=== PATIENT | male | born 1940 | race Caucasian/White ===

== ENCOUNTER 2022-04-13 09:26 | Observation (INO) | payer MEDICARE, OTHER ==
--- NOTE | 2022-04-13 10:33 | ERPHSYRPT ---
- History of Present Illness Time Seen by Provider: 04/13/22 10:55 Source: patient, family Exam Limitations: no limitations Patient Subjective Stated Complaint: PT HERE FOR WEAKNESS FOR UNKNOWN HOW LONG, HE FELL YESTERDAY WHEN HE TURNED, HE DENIES ANY INJURY FORM FALL, PT IS A POOR HISTORIAN Triage Nursing Assessment: PT ALERT, ABLE TO GET UNDRESSED WITH ASSIST OF ONE, HE NOW STATES HE IS URINATING SMALL AMTS. NO BURNING WITH URINATION . JUST F INISHED ANTIBOTICS FOR CELLULITIS Physician History: Patient is 81-year-old male presents to our ED with his for evaluation of suspected TIA. states patient has been experiencing intermittent right upper and lower extremity weakness. Symptoms started approximately 3 weeks ago. Patient followed up with primary care doctor who advised CT head but patient refused. states that patient has been having difficulty reading. She states he sometimes he appears confused. Patient fell yesterday. No associated chest pain or shortness of breath. No nausea vomiting or diaphoresis. Patient denies injury from trauma. Patient's symptoms are intermittent. No specific worsening improving factors. Patient otherwise voices no other complaints or concerns at this time. Portions of this note were created with voice recognition technology. There may be grammatical, spelling, punctuation or sound alike errors Timing/Duration: day(s) (3 weeks) Severity: mild Modifying Factors: Improves With: nothing Associated Symptoms: denies symptoms Allergies/Adverse Reactions: No Known Drug Allergies Allergy (Unverified 04/13/22 09:37) Home Medications: Aspirin 81 gm Chew [Baby Aspirin 81 mg Chew] 81 mg PO DAILY 04/13/22 [History] Donepezil HCl [Aricept] 5 mg PO DAILY 04/13/22 [History] Glimepiride 1 mg PO TID 04/13/22 [History] Simvastatin 10 mg [Zocor 10MG] 10 mg PO DAILY 04/13/22 [History] Vit E/B1/B6/FA/B12/Ala/Coq10 [Folic-K Capsule] 1 each PO DAILY 04/13/22 [History] Hx Influenza Vaccination/Date Given: Yes Hx Pneumococcal Vaccination/Date Given: No Immunizations Up to Date: Yes Travel Risk - International Travel Have you traveled outside of the country in past 3 weeks: No - Coronavirus Screening Are you exhibiting any of the following symptoms?: No Close contact with a COVID-19 positive Pt in past 14-21 Days: No - Vaccine Status Have you recieved a Covid-19 vaccination: No - Review of Systems Constitutional: No Symptoms, No Fever, No Chills Eyes: No Symptoms Ears, Nose, & Throat: No Symptoms Respiratory: No Symptoms, No Cough, No Dyspnea Cardiac: No Symptoms, No Chest Pain, No Edema, No Syncope Abdominal/Gastrointestinal: No Symptoms, No Abdominal Pain, No Nausea, No Vomiting, No Diarrhea Genitourinary Symptoms: No Symptoms, No Dysuria Musculoskeletal: No Symptoms, No Back Pain, No Neck Pain Skin: No Symptoms, No Rash Neurological: No Symptoms, No Dizziness, No Focal Weakness, No Sensory Changes Psychological: No Symptoms Endocrine: No Symptoms Hematologic/Lymphatic: No Symptoms Immunological/Allergic: No Symptoms All Other Systems: Reviewed and Negative - Past Medical History Cardiac History: Coronary Artery Disease, High Cholesterol, Hypertension Male Reproductive Disorders: Prostate Problems - Past Surgical History Past Surgical History: Yes Cardiac: CABG, Cardiac Catheterization - Social History Smoking Status: Former smoker Exposure to second hand smoke: No Drug Use: none Patient Lives Alone: No - Nursing Vital Signs Nursing Vital Signs: Initial Vital Signs Pulse Rate 67 04/13/22 09:27 Respiratory Rate 22 04/13/22 09:27 Blood Pressure 201/74 04/13/22 09:27 O2 Sat by Pulse Oximetry 97 04/13/22 09:27 Pain Scale Pain Intensity 0 - Physical Exam General Appearance: no apparent distress, alert Eye Exam: PERRL/EOMI, eyes nml inspection Ears, Nose, Throat Exam: normal ENT inspection, TMs normal, pharynx normal, moist mucous membranes Neck Exam: normal inspection, non-tender, supple, full range of motion Respiratory Exam: normal breath sounds, lungs clear, airway intact, No respiratory distress Cardiovascular Exam: regular rate/rhythm, normal heart sounds, normal peripheral pulses Gastrointestinal/Abdomen Exam: soft, normal bowel sounds, No tenderness, No mass Back Exam: normal inspection, normal range of motion, No CVA tenderness, No vertebral tenderness Extremity Exam: normal inspection, normal range of motion, pelvis stable Neurologic Exam: alert, oriented x 3, cooperative, normal mood/affect, nml cerebellar function, nml station & gait, sensation nml, No motor deficits Skin Exam: normal color, warm, dry, No rash Lymphatic Exam: No adenopathy SpO2 Interpretation: normal SpO2: 97 O2 Delivery: Room Air - Course Nursing assessment & vital signs reviewed: Yes EKG Interpreted by Me: RATE (69), A-fib, NORMAL AXIS, NORMAL INTERVALS - CT Exams Head CT Interpretation: Tele-radiologist Report (Left occipital lobe lesion favoring ischemia likely subacute. Maxillary sinus mucosal thickening. Global atrophy.) Ordered Tests: Active Orders 24 hr Category Date Time Status General Labor Forklift Operator STAT Care 04/13/22 10:24 Active IV Insertion STAT Care 04/13/22 10:23 Active Pulse Oximetry (ED) STAT Care 04/13/22 10:23 Active Consult Tele-Health [Tele-Health Consult] ROUTINE Cons 04/13/22 13:15 Active HEAD WITHOUT CONTRAST [CT] Stat Exams 04/13/22 11:03 Completed CBC W DIFF Stat Lab 04/13/22 10:35 Completed CMP Stat Lab 04/13/22 10:35 Completed TROPONIN Q4H Lab 04/13/22 10:35 Completed TROPONIN Q4H Lab 04/13/22 14:30 Ordered TROPONIN Q4H Lab 04/13/22 18:30 Ordered UA W/RFX CULTURE Stat Lab 04/13/22 10:30 Completed Transfer Order Routine Transfer 04/13/22 Ordered Medication Summary Generic Name Dose Route Start Last Admin Trade Name Freq PRN Reason Stop Dose Admin Sodium Chloride 1,000 mls @ 75 mls/hr 04/13/22 13:30 04/13/22 13:27 Sodium Chloride 0.9% 1000 Ml IV 05/13/22 13:29 75 mls/hr .[id number] RENE Administration Discontinued Medications Generic Name Dose Route Start Last Admin Trade Name Freq PRN Reason Stop Dose Admin Aspirin 324 mg 04/13/22 13:17 04/13/22 13:27 Aspirin 81 Mg Tab.Chew PO 04/13/22 13:18 324 mg STAT ONE Administration Aspirin Confirm 04/13/22 13:26 Aspirin 81 Mg Tab.Chew Administered 04/13/22 13:27 Dose 324 mg .ROUTE .STK-MED ONE Lab/Rad Data: Laboratory Result Diagrams 04/13/22 10:35 04/13/22 10:35 Laboratory Results 04/13/22 04/13/22 04/13/22 Range/Units 10:41 10:35 10:35 WBC (4.0-10.5) x10^3/uL RBC (4.1-5.6) x10^6/uL Hgb (12.5-18.0) g/dL Hct (42-50) % MCV (78-100) fL MCH (26-32) pg MCHC (32-36) g/dL RDW (11.5-14.0) % Plt Count (150-450) x10^3/uL MPV (7.5-11.0) fL Gran % (36.0-66.0) % Immature Gran % (Auto) (0.00-0.4) % Nucleat RBC Rel Count (0.00-0.1) % Eos # (Auto) (0-0.5) x10^3/uL Immature Gran # (Auto) (0.00-0.03) x10^3u/L Absolute Lymphs (auto) (1.0-4.6) x10^3/uL Absolute Monos (auto) (0.0-1.3) x10^3/uL Absolute Nucleated RBC (0.00-0.01) x10^3u/L Lymphocytes % (24.0-44.0) % Monocytes % (0.0-12.0) % Eosinophils % (0.00-5.0) % Basophils % (0.0-0.4) % Absolute Granulocytes (1.4-6.9) x10^3/uL Basophils # (0-0.4) x10^3/uL Sodium 136 L (137-145) mmol/L Potassium 4.2 (3.5-5.1) mmol/L Chloride 102 (98-107) mmol/L Carbon Dioxide 27 (22-30) mmol/L Anion Gap 10.7 (5-15) MEQ/L BUN 25 H (9-20) mg/dL Creatinine 1.34 H (0.66-1.25) mg/dL Estimated GFR 54.2 ML/MIN Glucose 115 H (74-106) mg/dL Calcium 9.2 (8.4-10.2) mg/dL Total Bilirubin 1.10 (0.2-1.3) mg/dL AST 58 (17-59) U/L ALT 41 (0-50) U/L Alkaline Phosphatase 78 (38-126) U/L Troponin I 0.020 (0.000-0.034) ng/mL Serum Total Protein 7.9 (6.3-8.2) g/dL Albumin 4.6 (3.5-5.0) g/dL Urinalys Dipstick Clnc Urine Color (YELLOW) Urine Appearance (CLEAR) Urine pH (5-6) Ur Specific [place] (1.005-1.025) POC Urine Protein Conf (Negative) Urine Ketones (NEGATIVE) Urine Nitrite (NEGATIVE) Urine Bilirubin (NEGATIVE) Urine Urobilinogen (0-1) mg/dL Urine Leukocytes (NEGATIVE) Urine WBC (Auto) (0-5) /HPF Urine RBC (Auto) (0-2) /HPF U Epithel Cells (Auto) (FEW) /HPF Urine Bacteria (Auto) (NEGATIVE) /HPF Urine RBC (0-5) Baltazar/ul Ur Culture Indicated? Urine Glucose (NEGATIVE) mg/dL Influenza Type A Ag NEGATIVE (NEGATIVE) Influenza Type B Ag NEGATIVE (NEGATIVE) RSV (PCR) NEGATIVE (Negative) SARS-CoV-2 (PCR) NEGATIVE (NEGATIVE) 04/13/22 04/13/22 Range/Units 10:35 10:30 WBC 8.6 (4.0-10.5) x10^3/uL RBC 4.91 (4.1-5.6) x10^6/uL Hgb 15.1 (12.5-18.0) g/dL Hct 45.9 (42-50) % MCV 93.5 (78-100) fL MCH 30.8 (26-32) pg MCHC 32.9 (32-36) g/dL RDW 13.2 (11.5-14.0) % Plt Count 169 (150-450) x10^3/uL MPV 10.1 (7.5-11.0) fL Gran % 73.1 H (36.0-66.0) % Immature Gran % (Auto) 0.4 (0.00-0.4) % Nucleat RBC Rel Count 0.0 (0.00-0.1) % Eos # (Auto) 0.10 (0-0.5) x10^3/uL Immature Gran # (Auto) 0.03 (0.00-0.03) x10^3u/L Absolute Lymphs (auto) 1.27 (1.0-4.6) x10^3/uL Absolute Monos (auto) 0.86 (0.0-1.3) x10^3/uL Absolute Nucleated RBC 0.00 (0.00-0.01) x10^3u/L Lymphocytes % 14.8 L (24.0-44.0) % Monocytes % 10.0 (0.0-12.0) % Eosinophils % 1.2 (0.00-5.0) % Basophils % 0.5 (0.0-0.4) % Absolute Granulocytes 6.27 (1.4-6.9) x10^3/uL Basophils # 0.04 (0-0.4) x10^3/uL Sodium (137-145) mmol/L Potassium (3.5-5.1) mmol/L Chloride (98-107) mmol/L Carbon Dioxide (22-30) mmol/L Anion Gap (5-15) MEQ/L BUN (9-20) mg/dL Creatinine (0.66-1.25) mg/dL Estimated GFR ML/MIN Glucose (74-106) mg/dL Calcium (8.4-10.2) mg/dL Total Bilirubin (0.2-1.3) mg/dL AST (17-59) U/L ALT (0-50) U/L Alkaline Phosphatase (38-126) U/L Troponin I (0.000-0.034) ng/mL Serum Total Protein (6.3-8.2) g/dL Albumin (3.5-5.0) g/dL Urinalys Dipstick Clnc MAIN LAB Urine Color YELLOW (YELLOW) Urine Appearance CLEAR (CLEAR) Urine pH 7.0 (5-6) Ur Specific [place] 1.020 (1.005-1.025) POC Urine Protein Conf 30 A (Negative) Urine Ketones NEGATIVE (NEGATIVE) Urine Nitrite NEGATIVE (NEGATIVE) Urine Bilirubin NEGATIVE (NEGATIVE) Urine Urobilinogen 0.2 (0-1) mg/dL Urine Leukocytes NEGATIVE (NEGATIVE) Urine WBC (Auto) NONE (0-5) /HPF Urine RBC (Auto) NONE (0-2) /HPF U Epithel Cells (Auto) NONE (FEW) /HPF Urine Bacteria (Auto) NONE (NEGATIVE) /HPF Urine RBC TRACE-INTACT A (0-5) Baltazar/ul Ur Culture Indicated? NO Urine Glucose NEGATIVE (NEGATIVE) mg/dL Influenza Type A Ag (NEGATIVE) Influenza Type B Ag (NEGATIVE) RSV (PCR) (Negative) SARS-CoV-2 (PCR) (NEGATIVE) - Progress Progress: improved Progress Note: Due to timing of patient's symptoms patient is not a tPA candidate. 04/13/22 11:46 Work-up reveals atrial fibrillation. This may be the source of patient's strokes. We ordered 100 mg dose of Lovenox. CT scan head shows subacute strok. Telemetry neuro advised admission with MRI. Patient also received aspirin. IV fluids infusing. Case discussed with Dr. Cole who accepts admission to observation. Again patient is not a candidate for tPA. 04/13/22 13:48 Blood pressure slightly elevated at approximately 180s to 200. In light of patient's history of stroke and active A. fib we will allow permissive hypertension from the ER's perspective. Telemetry neuro consulted. Telemetry neuro states patient can stay in our critical access hospital for further care. Case discussed Dr. Cole who accepts admission to observation. Plan of care discussed with patient. He agrees to admission [facility] for further evaluation and treatment. Portions of this note were created with voice recognition technology. There may be grammatical, spelling, punctuation or sound alike errors 04/13/22 13:[address] Mariely Will see patient in: hospital (observation) Counseled pt/family regarding: lab results, diagnosis, need for follow-up, rad results - Departure Departure Disposition: Observation Clinical Impression: Stroke, Maxillary sinus disease, Atrial fibrillation Condition: Stable Critical Care Time: No
[2022-04-13 10:40] LABS: Absolute Neutrophil Ct (ANC) 6.27 x10^3/uL (1.4-6.9); Basophil (Absolute #) 0.04 x10^3/uL (0-0.4); Eosinophil % 1.2 % (0.00-5.0); Hematocrit 45.9 % (42-50); Hemoglobin 15.1 g/dL (12.5-18.0); Lymphocyte (Absolute #) 1.27 x10^3/uL (1.0-4.6); Lymphocytes % 14.8 % (24.0-44.0); Mean Cell Volume 93.5 fL (78-100); Mean Corpuscular Hemoglobin 30.8 pg (26-32); Mean Corpuscular Hgb Concent. 32.9 g/dL (32-36); Mean Platelet Volume 10.1 fL (7.5-11.0); Monocyte (Absolute #) 0.86 x10^3/uL (0.0-1.3); Neutrophil % 73.1 % (36.0-66.0); Platelet Count 169 x10^3/uL (150-450); Red Blood Count 4.91 x10^6/uL (4.1-5.6); Red Cell Distribution Width 13.2 % (11.5-14.0); White Blood Count 8.6 x10^3/uL (4.0-10.5)
[2022-04-13 10:42] LABS: Appearance CLEAR (CLEAR); Bilirubin NEGATIVE (NEGATIVE); Glucose NEGATIVE (NEGATIVE); Ketones NEGATIVE (NEGATIVE); RBC TRACE-INTACT Ery/ul (0-5)
[2022-04-13 10:43] LABS: Dipstick done @ ? MAIN LAB; Nitrite NEGATIVE (NEGATIVE); Protein,Urine Dip 30 (Negative); Urobilinogen 0.2 mg/dL (0-1)
[2022-04-13 10:54] LABS: ALBUMIN 4.6 g/dL (3.5-5.0); ANION GAP 10.7 MEQ/L (5-15); BILIRUBIN,TOTAL 1.1 mg/dL (0.2-1.3); Calcium 9.2 mg/dL (8.4-10.2); Creatinine 1 1.34 mg/dL (0.66-1.25); EST GLOMERULAR FILTRATION RATE 54.2 ML/MIN; Potassium 4.2 mmol/L (3.5-5.1); Total Protein 7.9 g/dL (6.3-8.2)
[2022-04-13 10:55] LABS: Urine Cultured Indicated? NO
[2022-04-13 11:19] LABS: INFLUENZA A NEGATIVE (NEGATIVE); INFLUENZA B NEGATIVE (NEGATIVE); RESPIRATORY SYNCTIAL VIRUS NEGATIVE (Negative); SARS-CoV-2 Xpert Express NEGATIVE (NEGATIVE)
--- NOTE | 2022-04-13 11:28 | XRAY ---
Indication: Acute mental status change. Multiple contiguous axial images obtained through the head without contrast. Graft comparison: None Age-appropriate global atrophy with mild periventricular degenerative micro-ischemia bilaterally. Left occipital lobe demonstrates focus of cortical/subcortical hypoattenuation at least 2.1 x 3.2 x 3.5 cm favoring ischemia. No acute intracranial hemorrhage, abnormal extra-axial fluid collection, or mass effect. Fourth ventricle is midline with anatomic variant for cavum septum pellucidum. Bony calvarium intact. Mild left and minimal right maxillary sinus mucosal thickening. Mastoid air cells are clear. Impression: 1. Small focus left occipital lobe ischemia. No acute hemorrhage or mass effect. 2. Atrophy and degenerative micro-ischemia within normal limits for patient's age. 2. Incidental maxillary sinus disease.
[2022-04-13] MEDS ORDERED: BABY ASPIRIN 81 MG CHEW PO ONE (13:17)
[2022-04-13] MEDS ORDERED: BABY ASPIRIN 81 MG CHEW ONE (13:26)
[2022-04-13] MEDS ORDERED: Sodium Chloride 0.9% 1000 ML 1,000 ML IV SCH (13:30)
[2022-04-13] MEDS ORDERED: MAALOX ES 30 ML UNIT DOSE PO PRN (13:49)
[2022-04-13] MEDS ORDERED: MILK OF MAGNESIA 30 ML PO PRN (13:49)
[2022-04-13] MEDS ORDERED: Senokot-S Tablet PO PRN (13:49)
[2022-04-13] MEDS ORDERED: TYLENOL 325 MG PO PRN (13:49)
[2022-04-13] MEDS ORDERED: Amaryl 2 MG PO SCH (15:00)
[2022-04-13] MEDS ORDERED: MEDICATION INTERVENTION MC SCH (15:00)
[2022-04-13] MEDS ORDERED: NON-FORMULARY ITEM (Glimepiride [Glimepiride] 1 MG Tablet) PO SCH (15:00)
[2022-04-13] MEDS: ENOXAPARIN SODIUM SQ SCH (15:23)
[2022-04-13] MEDS: Sodium Chloride 0.9% 1000 ML 1,000 ML IV SCH (15:24)
[2022-04-13] MEDS: Amaryl 2 MG PO SCH (18:09)
[2022-04-13] MEDS ORDERED: Zocor 10MG PO SCH (22:00)
[2022-04-14] MEDS: Sodium Chloride 0.9% 1000 ML 1,000 ML IV SCH (02:55)
--- NOTE | 2022-04-14 07:40 | PCM.HP ---
History of Present Illness - Chief Complaint Chief Complaint: stroke History of Present Illness: is a 81 year old male with Hx mild dementia who reports right sided weakness for several days and a fall. PCP advised CT last week but patient refused.He lives at home with his . PMHx includes DM2,HTN,HLD,CAD,Stroke,Arthritis,Prostate problems. Medications & Allergies Home Medications: Home Medication List Aspirin 81 gm Chew [Baby Aspirin 81 mg Chew] 81 mg PO DAILY 04/13/22 [History Confirmed 04/13/22] Donepezil HCl [Aricept] 5 mg PO DAILY 04/13/22 [History Confirmed 04/13/22] Glimepiride 0.5 mg PO TID 04/13/22 [History Confirmed 04/13/22] Simvastatin 10 mg [Zocor 10MG] 10 mg PO HS 04/13/22 [History Confirmed 04/13/22] Vit E/B1/B6/FA/B12/Ala/Coq10 [Folic-K Capsule] 1 each PO DAILY 04/13/22 [History Confirmed 04/13/22] terbinafine HCL [Terbinafine HCl] 250 mg PO DAILY 04/13/22 [History Confirmed 04/13/22] Enoxaparin Sodium [Enoxaparin Sodium] 100 mg SQ DAILY #7 04/14/22 [Rx] Warfarin Sodium 5 mg [Jantoven] 5 mg PO UD #30 tablet 04/14/22 [Rx] Allergies/Adverse Reactions: Allergies Allergy/AdvReac Type Severity Reaction Status Date / Time No Known Drug Allergies Allergy Verified 04/13/22 13:53 - Past Medical History Neurological History: Stroke ENT History: Cataracts Cardiac History: Coronary Artery Disease, High Cholesterol, Hypertension Respiratory History: No Pertinent History Endocrine Medical History: Diabetes Type II Musculoskelatal History: Arthritis GI Medical History: No Pertinent History History: No Pertinent History Pyscho-Social History: No Pertinent History Male Reproductive Disorders: Prostate Problems Comment: open heart bypass x 1994 - Past Surgical History Past Surgical History: Yes Neuro Surgical History: No Pertinent History Cardiac History: CABG, Cardiac Catheterization Respiratory Surgery: No Pertinent History GI Surgical History: No Pertinent History Genitourinary Surgical Hx: No Pertinent History Musculskeletal Surgical Hx: No Pertinent History Male Surgical History: No Pertinent History - Social History Smoking Status: Former smoker Exposure to second hand smoke: No Alcohol: None Drug Use: none - Physical Exam Vital Signs: Vital Signs - 24 hr Temp Pulse Resp BP Pulse Ox 04/14/22 07:19 97.8 F 70 18 143/92 94 L 04/14/22 04:00 97.4 F 69 18 170/79 95 04/13/22 23:20 97.5 F 80 17 189/94 91 L 04/13/22 19:39 97.7 F 66 16 198/92 97 04/13/22 16:00 97.7 F 64 16 195/92 98 04/13/22 14:07 97.7 F 64 16 195/92 98 04/13/22 13:53 97 04/13/22 13:49 98 04/13/22 13:40 97.7 F 64 16 195/92 96 04/13/22 13:01 79 18 209/107 98 04/13/22 12:00 68 18 187/107 98 04/13/22 10:37 97 04/13/22 09:27 67 22 201/74 97 Results - Labs Lab/Micro Results: Lab Results-Last 24 Hours 04/13/22 04/13/22 04/13/22 Range/Units 10:30 10:35 10:35 WBC 8.6 (4.0-10.5) x10^3/uL RBC 4.91 (4.1-5.6) x10^6/uL Hgb 15.1 (12.5-18.0) g/dL Hct 45.9 (42-50) % MCV 93.5 (78-100) fL MCH 30.8 (26-32) pg MCHC 32.9 (32-36) g/dL RDW 13.2 (11.5-14.0) % Plt Count 169 (150-450) x10^3/uL MPV 10.1 (7.5-11.0) fL Gran % 73.1 H (36.0-66.0) % Immature Gran % (Auto) 0.4 (0.00-0.4) % Nucleat RBC Rel Count 0.0 (0.00-0.1) % Eos # (Auto) 0.10 (0-0.5) x10^3/uL Immature Gran # (Auto) 0.03 (0.00-0.03) x10^3u/L Absolute Lymphs (auto) 1.27 (1.0-4.6) x10^3/uL Absolute Monos (auto) 0.86 (0.0-1.3) x10^3/uL Absolute Nucleated RBC 0.00 (0.00-0.01) x10^3u/L Lymphocytes % 14.8 L (24.0-44.0) % Monocytes % 10.0 (0.0-12.0) % Eosinophils % 1.2 (0.00-5.0) % Basophils % 0.5 (0.0-0.4) % Absolute Granulocytes 6.27 (1.4-6.9) x10^3/uL Basophils # 0.04 (0-0.4) x10^3/uL Sodium 136 L (137-145) mmol/L Potassium 4.2 (3.5-5.1) mmol/L Chloride 102 (98-107) mmol/L Carbon Dioxide 27 (22-30) mmol/L Anion Gap 10.7 (5-15) MEQ/L BUN 25 H (9-20) mg/dL Creatinine 1.34 H (0.66-1.25) mg/dL Estimated GFR 54.2 ML/MIN Glucose 115 H (74-106) mg/dL POC Glucometer (74 to 106) mg/dL Calcium 9.2 (8.4-10.2) mg/dL Total Bilirubin 1.10 (0.2-1.3) mg/dL AST 58 (17-59) U/L ALT 41 (0-50) U/L Alkaline Phosphatase 78 (38-126) U/L Troponin I (0.000-0.034) ng/mL Serum Total Protein 7.9 (6.3-8.2) g/dL Albumin 4.6 (3.5-5.0) g/dL Urinalys Dipstick Clnc MAIN LAB Urine Color YELLOW (YELLOW) Urine Appearance CLEAR (CLEAR) Urine pH 7.0 (5-6) Ur Specific [place] 1.020 (1.005-1.025) POC Urine Protein Conf 30 A (Negative) Urine Ketones NEGATIVE (NEGATIVE) Urine Nitrite NEGATIVE (NEGATIVE) Urine Bilirubin NEGATIVE (NEGATIVE) Urine Urobilinogen 0.2 (0-1) mg/dL Urine Leukocytes NEGATIVE (NEGATIVE) Urine WBC (Auto) NONE (0-5) /HPF Urine RBC (Auto) NONE (0-2) /HPF U Epithel Cells (Auto) NONE (FEW) /HPF Urine Bacteria (Auto) NONE (NEGATIVE) /HPF Urine RBC TRACE-INTACT A (0-5) Baltazar/ul Ur Culture Indicated? NO Urine Glucose NEGATIVE (NEGATIVE) mg/dL Influenza Type A Ag (NEGATIVE) Influenza Type B Ag (NEGATIVE) RSV (PCR) (Negative) SARS-CoV-2 (PCR) (NEGATIVE) 04/13/22 04/13/22 04/13/22 Range/Units 10:35 10:41 14:10 WBC (4.0-10.5) x10^3/uL RBC (4.1-5.6) x10^6/uL Hgb (12.5-18.0) g/dL Hct (42-50) % MCV (78-100) fL MCH (26-32) pg MCHC (32-36) g/dL RDW (11.5-14.0) % Plt Count (150-450) x10^3/uL MPV (7.5-11.0) fL Gran % (36.0-66.0) % Immature Gran % (Auto) (0.00-0.4) % Nucleat RBC Rel Count (0.00-0.1) % Eos # (Auto) (0-0.5) x10^3/uL Immature Gran # (Auto) (0.00-0.03) x10^3u/L Absolute Lymphs (auto) (1.0-4.6) x10^3/uL Absolute Monos (auto) (0.0-1.3) x10^3/uL Absolute Nucleated RBC (0.00-0.01) x10^3u/L Lymphocytes % (24.0-44.0) % Monocytes % (0.0-12.0) % Eosinophils % (0.00-5.0) % Basophils % (0.0-0.4) % Absolute Granulocytes (1.4-6.9) x10^3/uL Basophils # (0-0.4) x10^3/uL Sodium (137-145) mmol/L Potassium (3.5-5.1) mmol/L Chloride (98-107) mmol/L Carbon Dioxide (22-30) mmol/L Anion Gap (5-15) MEQ/L BUN (9-20) mg/dL Creatinine (0.66-1.25) mg/dL Estimated GFR ML/MIN Glucose (74-106) mg/dL POC Glucometer (74 to 106) mg/dL Calcium (8.4-10.2) mg/dL Total Bilirubin (0.2-1.3) mg/dL AST (17-59) U/L ALT (0-50) U/L Alkaline Phosphatase (38-126) U/L Troponin I 0.020 0.018 (0.000-0.034) ng/mL Serum Total Protein (6.3-8.2) g/dL Albumin (3.5-5.0) g/dL Urinalys Dipstick Clnc Urine Color (YELLOW) Urine Appearance (CLEAR) Urine pH (5-6) Ur Specific [place] (1.005-1.025) POC Urine Protein Conf (Negative) Urine Ketones (NEGATIVE) Urine Nitrite (NEGATIVE) Urine Bilirubin (NEGATIVE) Urine Urobilinogen (0-1) mg/dL Urine Leukocytes (NEGATIVE) Urine WBC (Auto) (0-5) /HPF Urine RBC (Auto) (0-2) /HPF U Epithel Cells (Auto) (FEW) /HPF Urine Bacteria (Auto) (NEGATIVE) /HPF Urine RBC (0-5) Baltazar/ul Ur Culture Indicated? Urine Glucose (NEGATIVE) mg/dL Influenza Type A Ag NEGATIVE (NEGATIVE) Influenza Type B Ag NEGATIVE (NEGATIVE) RSV (PCR) NEGATIVE (Negative) SARS-CoV-2 (PCR) NEGATIVE (NEGATIVE) 04/13/22 04/13/22 04/13/22 Range/Units 16:19 18:25 21:55 WBC (4.0-10.5) x10^3/uL RBC (4.1-5.6) x10^6/uL Hgb (12.5-18.0) g/dL Hct (42-50) % MCV (78-100) fL MCH (26-32) pg MCHC (32-36) g/dL RDW (11.5-14.0) % Plt Count (150-450) x10^3/uL MPV (7.5-11.0) fL Gran % (36.0-66.0) % Immature Gran % (Auto) (0.00-0.4) % Nucleat RBC Rel Count (0.00-0.1) % Eos # (Auto) (0-0.5) x10^3/uL Immature Gran # (Auto) (0.00-0.03) x10^3u/L Absolute Lymphs (auto) (1.0-4.6) x10^3/uL Absolute Monos (auto) (0.0-1.3) x10^3/uL Absolute Nucleated RBC (0.00-0.01) x10^3u/L Lymphocytes % (24.0-44.0) % Monocytes % (0.0-12.0) % Eosinophils % (0.00-5.0) % Basophils % (0.0-0.4) % Absolute Granulocytes (1.4-6.9) x10^3/uL Basophils # (0-0.4) x10^3/uL Sodium (137-145) mmol/L Potassium (3.5-5.1) mmol/L Chloride (98-107) mmol/L Carbon Dioxide (22-30) mmol/L Anion Gap (5-15) MEQ/L BUN (9-20) mg/dL Creatinine (0.66-1.25) mg/dL Estimated GFR ML/MIN Glucose (74-106) mg/dL POC Glucometer 124 H 85 (74 to 106) mg/dL Calcium (8.4-10.2) mg/dL Total Bilirubin (0.2-1.3) mg/dL AST (17-59) U/L ALT (0-50) U/L Alkaline Phosphatase (38-126) U/L Troponin I 0.024 (0.000-0.034) ng/mL Serum Total Protein (6.3-8.2) g/dL Albumin (3.5-5.0) g/dL Urinalys Dipstick Clnc Urine Color (YELLOW) Urine Appearance (CLEAR) Urine pH (5-6) Ur Specific [place] (1.005-1.025) POC Urine Protein Conf (Negative) Urine Ketones (NEGATIVE) Urine Nitrite (NEGATIVE) Urine Bilirubin (NEGATIVE) Urine Urobilinogen (0-1) mg/dL Urine Leukocytes (NEGATIVE) Urine WBC (Auto) (0-5) /HPF Urine RBC (Auto) (0-2) /HPF U Epithel Cells (Auto) (FEW) /HPF Urine Bacteria (Auto) (NEGATIVE) /HPF Urine RBC (0-5) Baltazar/ul Ur Culture Indicated? Urine Glucose (NEGATIVE) mg/dL Influenza Type A Ag (NEGATIVE) Influenza Type B Ag (NEGATIVE) RSV (PCR) (Negative) SARS-CoV-2 (PCR) (NEGATIVE) 04/14/22 Range/Units 07:11 WBC (4.0-10.5) x10^3/uL RBC (4.1-5.6) x10^6/uL Hgb (12.5-18.0) g/dL Hct (42-50) % MCV (78-100) fL MCH (26-32) pg MCHC (32-36) g/dL RDW (11.5-14.0) % Plt Count (150-450) x10^3/uL MPV (7.5-11.0) fL Gran % (36.0-66.0) % Immature Gran % (Auto) (0.00-0.4) % Nucleat RBC Rel Count (0.00-0.1) % Eos # (Auto) (0-0.5) x10^3/uL Immature Gran # (Auto) (0.00-0.03) x10^3u/L Absolute Lymphs (auto) (1.0-4.6) x10^3/uL Absolute Monos (auto) (0.0-1.3) x10^3/uL Absolute Nucleated RBC (0.00-0.01) x10^3u/L Lymphocytes % (24.0-44.0) % Monocytes % (0.0-12.0) % Eosinophils % (0.00-5.0) % Basophils % (0.0-0.4) % Absolute Granulocytes (1.4-6.9) x10^3/uL Basophils # (0-0.4) x10^3/uL Sodium (137-145) mmol/L Potassium (3.5-5.1) mmol/L Chloride (98-107) mmol/L Carbon Dioxide (22-30) mmol/L Anion Gap (5-15) MEQ/L BUN (9-20) mg/dL Creatinine (0.66-1.25) mg/dL Estimated GFR ML/MIN Glucose (74-106) mg/dL POC Glucometer 95 (74 to 106) mg/dL Calcium (8.4-10.2) mg/dL Total Bilirubin (0.2-1.3) mg/dL AST (17-59) U/L ALT (0-50) U/L Alkaline Phosphatase (38-126) U/L Troponin I (0.000-0.034) ng/mL Serum Total Protein (6.3-8.2) g/dL Albumin (3.5-5.0) g/dL Urinalys Dipstick Clnc Urine Color (YELLOW) Urine Appearance (CLEAR) Urine pH (5-6) Ur Specific [place] (1.005-1.025) POC Urine Protein Conf (Negative) Urine Ketones (NEGATIVE) Urine Nitrite (NEGATIVE) Urine Bilirubin (NEGATIVE) Urine Urobilinogen (0-1) mg/dL Urine Leukocytes (NEGATIVE) Urine WBC (Auto) (0-5) /HPF Urine RBC (Auto) (0-2) /HPF U Epithel Cells (Auto) (FEW) /HPF Urine Bacteria (Auto) (NEGATIVE) /HPF Urine RBC (0-5) Baltazar/ul Ur Culture Indicated? Urine Glucose (NEGATIVE) mg/dL Influenza Type A Ag (NEGATIVE) Influenza Type B Ag (NEGATIVE) RSV (PCR) (Negative) SARS-CoV-2 (PCR) (NEGATIVE) Accuchecks Date 04/14/22 Date 04/13/22 Time 07:15 Time 21:58 - Radiology Impressions Radiology Exams & Impressions: Radiology Procedures Category Date Time Status HEAD WITHOUT CONTRAST [CT] Stat Exams 04/13/22 11:03 Completed MRI BRAIN W/O CONTRAST [MRI] Routine Exams 04/14/22 09:00 Ordered - Other Procedures and Tests Respiratory Therapy 04/15/22 05:00 EKG ROUTINE 04/16/22 05:00 EKG ROUTINE
[2022-04-14 07:50] LABS: Risk Ratio 3.5
[2022-04-14] MEDS: ENOXAPARIN SODIUM SQ SCH (08:14)
[2022-04-14] MEDS: Amaryl 2 MG PO SCH ×2 (08:14→16:56)
[2022-04-14] MEDS ORDERED: lamISIL 250 MG PO SCH (10:00)
[2022-04-14] MEDS ORDERED: ALA PO SCH (10:00)
[2022-04-14] MEDS ORDERED: B6 PO SCH (10:00)
[2022-04-14] MEDS ORDERED: [UNRECOGNIZED DRUG - OTHER] PO SCH (10:00)
[2022-04-14] MEDS ORDERED: ECOTRIN 81 MG PO SCH (10:00)
[2022-04-14] MEDS ORDERED: COQ10 PO SCH (10:00)
[2022-04-14] MEDS ORDERED: B12 PO SCH (10:00)
[2022-04-14] MEDS ORDERED: Aricept 10 MG PO SCH (10:00)
[2022-04-14] MEDS ORDERED: Ecotrin 325 MG PO SCH (10:00)
[2022-04-14] MEDS ORDERED: VIT E PO SCH (10:00)
[2022-04-14] MEDS ORDERED: B1 PO SCH (10:00)
--- NOTE | 2022-04-14 11:13 | XRAY ---
Indication: Bilateral weakness. CVA. Sagittal, coronal, and axial MRI brain performed without contrast using T1, T2, FLAIR, diffusion, and ADC sequences. Comparison: None Prominent Virchow-Steven spaces noted bilaterally. Age-appropriate global atrophy and mild periventricular degenerative micro-ischemia signal bilaterally. Inferior right cerebellum demonstrates 2 cm focus old infarct. Tiny remote lacunar infarct adjacent to the right frontal horn. Diffusion images demonstrates restricted signal involving the left occipital lobe favoring acute ischemia. Additional subtle cortical/subcortical acute ischemia involving the posterior right temporal parietal lobe. Left centrum semiovale demonstrates 2 additional subcentimeter foci of acute ischemia. Additional 5 mm multifocal acute ischemia right cerebellum. Brainstem/farrah demonstrates 1.6 x 1.0 x 1.0 cm focus of acute ischemia. No acute intracranial hemorrhage, abnormal extra-axial fluid collection, or mass effect. Fourth ventricle is midline with anatomic variant for cavum septum pellucidum. 7/8 cranial nerve complex bilaterally symmetric. Normal flow-void signal within the major intracerebral circulation. Normal appearing craniocervical junction and sella turcica. Mild bilateral maxillary and right ethmoid sinus mucosal thickening. Impression: 1. Acute ischemia left occipital lobe and posterior right temporal parietal lobe. Additional tiny multifocal ischemia seen left centrum semiovale, right cerebellum, and left farrah. Multiplicity and bilaterality concerning for embolic phenomenon. 2. Small remote infarct inferior right cerebellum and remote lacunar infarct adjacent right frontal lobe 3. Atrophy and degenerative micro-ischemia within normal limits for patient's age.
[2022-04-14] MEDS ORDERED: PHARMACY DOSING REQUEST MC ONE (15:31)
[2022-04-14 16:07] LABS: INR 1.13 (0.8-3.0); PROTIME 11.8 SECONDS (9.4-12.5)
[2022-04-14 16:24] VITALS: BP 171/93; PULSE 69; O2SAT 98
[2022-04-14] MEDS ORDERED: JANTOVEN PO SCH (18:00)
== END 2022-04-14 17:03 | disposition home or self-care (01) ==
LOC: ED 09:26 → MED SURG 13:34
PROVIDERS: ADMIT Family Medicine; ATTEND Family Medicine
DX: I63.9 Cerebral infarction, unspecified (principal); I48.91 Unspecified atrial fibrillation; W18.30XA Fall on same level, unspecified, initial encounter; E11.9 Type 2 diabetes mellitus without complications; I10 Essential (primary) hypertension; E78.5 Hyperlipidemia, unspecified; F03.90 Unspecified dementia, unspecified severity, without behavioral disturbance, psychotic disturbance, mood disturbance, and anxiety; I25.10 Atherosclerotic heart disease of native coronary artery without angina pectoris; Z79.899 Other long term (current) drug therapy; Z20.828 Contact with and (suspected) exposure to other viral communicable diseases
CPT/HCPCS: 0241U; 36000; 36415; 70450; 70551; 80053; 80061; 81015; 82947; 83721; 84484; 85025; 85610; 93005; 93041; 93268; 94760; 99285; J1650; A9270-GY; G0378

== ENCOUNTER 2022-06-16 04:49 | Emergency (ER) | payer MEDICARE, OTHER ==
--- NOTE | 2022-06-16 05:22 | ERPHSYRPT ---
- History of Present Illness Source: patient, other () Exam Limitations: other (Poor historian) Patient Subjective Stated Complaint: fell at home and hurt my back Triage Nursing Assessment: pt brought back by wheelchair, alert and oriented x3, pleasant and cooperative. Pt got up to go to the bathroom around 2am and fell onto his back. Pt c/o low to mid back pain to the center of his back. Pt able to move around without diff. Physician History: 81 yo wm slipped and fell at home at 2AM on way to the bathroom. Pt complains of Cervical/mid-thoracic pain which is rated a 3 on scale. He is on coumadin. Pt denies headache/LOC/syncope/chest pain/focal weakness/fever/upper extremity pain/lower extremity pain-hip pain. Occurred: other (2AM) Reason for Fall: lost balance Injuries/Pain Location: back Loss of Consciousness: no loss of consciousness Severity of Pain-Max: moderate Severity of Pain-Current: mild Modifying Factors: Improves With: movement Allergies/Adverse Reactions: No Known Drug Allergies Allergy (Verified 06/16/22 05:02) Home Medications: Aspirin 81 gm Chew [Baby Aspirin 81 mg Chew] 81 mg PO DAILY 04/13/22 [History] Donepezil HCl [Aricept] 5 mg PO DAILY 04/13/22 [History] Glimepiride 0.5 mg PO BIDWM 04/13/22 [History] Simvastatin 10 mg [Zocor 10MG] 10 mg PO HS 04/13/22 [History] Vit E/B1/B6/FA/B12/Ala/Coq10 [Folic-K Capsule] 1 each PO DAILY 04/13/22 [History] Mecobalamin [B-12] 1,000 mcg SL DAILY 06/03/22 [History] Multivitamin 1 each PO DAILY 06/03/22 [History] Vitamin E 400 Units [Vitamin E 400 UNIT SOFTGEL] 400 unit PO DAILY 06/03/22 [History] Warfarin Sodium 5 mg [Jantoven] 10 mg PO UD 06/03/22 [History] Hx Tetanus, Diphtheria Vaccination/Date Given: Yes Hx Influenza Vaccination/Date Given: No Hx Pneumococcal Vaccination/Date Given: Yes Travel Risk - International Travel Have you traveled outside of the country in past 3 weeks: No - Coronavirus Screening Are you exhibiting any of the following symptoms?: No Close contact with a COVID-19 positive Pt in past 14-21 Days: No - Vaccine Status Have you recieved a Covid-19 vaccination: No - Review of Systems Constitutional: No Symptoms Eyes: No Symptoms Ears, Nose, & Throat: No Symptoms Respiratory: No Symptoms Cardiac: No Symptoms Abdominal/Gastrointestinal: No Symptoms Musculoskeletal: Back Pain Skin: No Symptoms Neurological: No Symptoms Psychological: No Symptoms Endocrine: No Symptoms Hematologic/Lymphatic: No Symptoms Immunological/Allergic: No Symptoms - Past Medical History Pertinent Past Medical History: Yes Neurological History: Stroke ENT History: Cataracts Cardiac History: Coronary Artery Disease, High Cholesterol, Hypertension Respiratory History: No Pertinent History Endocrine Medical History: Diabetes Type II Musculoskeletal History: Arthritis GI Medical History: No Pertinent History History: No Pertinent History Psycho-Social History: No Pertinent History Male Reproductive Disorders: Prostate Problems Other Medical History: open heart bypass x 5 1994 - Past Surgical History Past Surgical History: Yes Neuro Surgical History: No Pertinent History Cardiac: CABG, Cardiac Catheterization Respiratory: No Pertinent History Gastrointestinal: No Pertinent History Genitourinary: No Pertinent History Musculoskeletal: No Pertinent History Male Surgical History: No Pertinent History - Social History Smoking Status: Former smoker Exposure to second hand smoke: No Drug Use: none Patient Lives Alone: No - Nursing Vital Signs Nursing Vital Signs: Initial Vital Signs Temperature 96.2 F 06/16/22 04:50 Pulse Rate 82 06/16/22 04:50 Respiratory Rate 20 06/16/22 04:50 Blood Pressure 200/123 06/16/22 04:50 O2 Sat by Pulse Oximetry 100 06/16/22 04:50 Pain Scale Pain Intensity [] 3 Pain Intensity 3 Hypertensive - Marcos Coma Score Best Eye Response ([place]): (4) open spontaneously Best Verbal Response ([place]): (5) oriented Best Motor Response ([place]): (6) obeys commands [place] Total: 15 - Physical Exam General Appearance: no apparent distress Head Injury: no evidence of injury Eye Exam: PERRL/EOMI, eyes nml inspection ENT Exam: airway nml, No clear fluid (ears), No clear fluid (nose), No hemotympanum Neck Exam: supple, tenderness (Mild C-spine TTP) Respiratory/Chest Exam: normal breath sounds, No chest tenderness, No respiratory distress Cardiovascular Exam: normal heart sounds, regular rate/rhythm, normal peripheral pulses, No murmur Gastrointestinal Exam: soft, normal bowel sounds, tenderness (Moderate jelani-umbilical TTP) Back Exam: vertebral tenderness (Moderate mid T-spine TTP) Extremity Exam: normal inspection, capillary refill <3 sec, pelvis stable, No deformities Neurologic Exam: alert, oriented x 3, cooperative, equipment inspector II-XII nml as tested, normal mood/affect, sensation nml Skin Exam: normal color, warm, dry SpO2 Interpretation: normal SpO2: 100 O2 Delivery: Room Air - CT Exams Head CT Interpretation: Tele-radiologist Report (CT head-No fx or bleed/Chronic areas of ischemia/motion) Cervical Spine CT Interpretation: Tele-radiologist Report (C-spine no fx/DDD/Carotid calcification) Ordered Tests: Active Orders 24 hr Category Date Time Status ABDOMEN AND PELVIS W/0 CONTRAS [CT] Stat Exams 06/16/22 05:17 Taken CERVICAL SPINE WO CONTRAST [CT] Stat Exams 06/16/22 05:16 Taken CHEST WITHOUT CONTRAST [CT] Stat Exams 06/16/22 05:16 Taken HEAD WITHOUT CONTRAST [CT] Stat Exams 06/16/22 05:15 Taken - Progress Progress Note: 06/16/22 05:31 Pt refuses all pain meds Additional history through Nursing note and vital signs reviewed No food or housing insecurities noted 06/16/22 06:57 Care turned over to Dr. Solis at 7:00am w CT C-spine/Chest/Abdomen/Pelvis pending - Departure Clinical Impression: Cervical strain Condition: Stable Critical Care Time: No Referrals: DELFIN SAINI MD [Primary Care Provider] - Follow up/PCP as directed
[2022-06-16 07:31] VITALS: BP 170/110; PULSE 75; O2SAT 98
--- NOTE | 2022-06-16 08:56 | XRAY ---
Indication: Pain following fall. Multiple contiguous axial images obtained through the head without contrast. Comparison: April 13, 2022 Stable age-appropriate global atrophy, mild periventricular degenerative micro-ischemia bilaterally, and old left occipital lobe infarct. Again no acute intracranial hemorrhage, abnormal extra-axial fluid collection, or mass effect. Fourth ventricle is midline again with anatomic variant for cavum septum pellucidum. Bony calvarium intact. Visualized paranasal sinuses and mastoid air cells are clear. Impression: Stable nonacute senile brain again with old left occipital lobe infarct. Comment: Preliminary interpretation made by [facility]. No critical discrepancy.
--- NOTE | 2022-06-16 09:01 | XRAY ---
Indication: Pain following fall. Multiple contiguous axial images obtained through the cervical spine. Sagittal and coronal reformatted images obtained. Comparison: None Osseous structures demineralized. Axial images negative for acute fracture, suspicious bony lesions, or spinal canal stenosis. Mild atlantoaxial degenerative changes. Mild/moderate multilevel bridging and nonbridging endplate osteophytes. Also mild/moderate multilevel bilateral degenerative facet hypertrophy, right greater than left. Sagittal and coronal reformatted images demonstrates lordotic straightening, positional versus paraspinal spasm. Vertebral body heights/disc spaces maintained. No acute compression fracture, subluxation, or jumped facet. Normal appearing craniocervical junction. Visualized noncontrasted soft tissues demonstrate mild bilateral carotid calcifications. CT head and CT chest reported separately. Impression: 1. Cervical lordotic straightening, positional versus paraspinal spasm. 2. Negative acute fracture/subluxation. 3. Osteopenia and multilevel degenerative spondylosis. Comment: Preliminary interpretation made by [facility]. No critical discrepancy.
--- NOTE | 2022-06-16 09:06 | XRAY ---
Indication: Pain following fall. Multiple contiguous axial images obtained through the chest without contrast. Comparison: None Lungs demonstrates posterior medial right lower lobe mass with irregular margins measuring 2.6 x 6.1 x 3.2 cm concerning for malignancy. Left lower lobe demonstrates 5 mm (image 36) and 3 mm (image 52) noncalcified nodules, possibly metastatic. Posterior right base demonstrates calcified small focus of pleural effusion/thickening and also small calcified granuloma. Remaining lungs demonstrates minimal scattered fibrosis/scarring. No pneumothorax. Heart not enlarged with CABG surgery. Aorta mildly arteriosclerotic without aneurysm. Small mediastinal and tiny right hilar calcified nodes. No pathologic mediastinal lymphadenopathy. Bony thorax intact with osteopenia, flowing osteophytes are at the spine, and sternotomy wires. CT abdomen/pelvis reported separately. Impression: 1. Suspicious irregular right lower lobe mass. Also left lower lobe noncalcified micronodules. Primary versus metastatic malignancy is of primary concern. 2. Posterior right lung base calcified pleural effusion/thickening. 3. Arteriosclerotic disease, chronic bony findings, and old granulomatous disease. Comment: Preliminary interpretation made by [facility]. No critical discrepancy.
--- NOTE | 2022-06-16 09:10 | XRAY ---
Indication: Pain following fall. Multiple contiguous axial images obtained through the abdomen and pelvis without contrast. Comparison: None CT chest reported separately. Noncontrasted stomach and bowel loops appear nonobstructed with normal appendix. Minimal sigmoid diverticulosis without diverticulitis. Normal distended gallbladder with a few tiny gallstones, largest 6 mm. Tiny hepatic/splenic calcific granulomas. Atrophic right kidney and 2.8 cm left lower renal cyst. Remaining liver, gallbladder, pancreas, spleen, adrenal glands, kidneys, ureters, and bladder are unremarkable for noncontrast exam. Mild scattered aortoiliac calcifications without AAA. Osseous structures intact with osteopenia and mild multilevel bridging/nonbridging endplate osteophytes. Moderate degenerative changes of both hips. Impression: 1. Sigmoid diverticulosis, cholelithiasis, right renal atrophy, left renal cyst, arteriosclerotic disease, chronic bony findings, and old granulomatous disease. 2. Remaining CT abdomen/pelvis without contrast exam is negative. Comment: Preliminary interpretation made by [facility]. No critical discrepancy.
== END 2022-06-16 07:50 | disposition home or self-care (01) ==
LOC: ED 04:49
DX: S16.1XXA Strain of muscle, fascia and tendon at neck level, initial encounter (principal); W18.30XA Fall on same level, unspecified, initial encounter; M54.6 Pain in thoracic spine; E78.5 Hyperlipidemia, unspecified; I10 Essential (primary) hypertension; E11.9 Type 2 diabetes mellitus without complications; Z79.01 Long term (current) use of anticoagulants; Z79.84 Long term (current) use of oral hypoglycemic drugs; Z79.899 Other long term (current) drug therapy; Z28.310 Unvaccinated for COVID-19
CPT/HCPCS: 70450; 71250; 72125; 74176; 99282

== ENCOUNTER 2024-06-24 05:40 | Emergency (ER) | payer MEDICARE ==
[2024-06-24 06:18] VITALS: RESP 18; TEMP 97.5
--- NOTE | 2024-06-24 06:27 | ERPHSYRPT ---
- History of Present Illness Source: patient, family Patient Subjective Stated Complaint: pt states he woke up with a nose bleed. pt states that he is on blood thinner Triage Nursing Assessment: pt came into the er via wheelchair; pt transfer to cot per self; pt is axo x2; c/o epistaxis; no active bleeding at time of assessment; dried blood present to rt nare; blood present in oral cavity; skin PDW; no respiratory distress present; hypertensive Timing/Duration: abrupt onset Severity: mild ENT Location: nose Prearrival Treatment: no prearrival treatment Modifying Factors: Improves With: nothing Associated Symptoms: epistaxis (Right nostril) Hx Tetanus, Diphtheria Vaccination/Date Given: Yes Hx Influenza Vaccination/Date Given: No Hx Pneumococcal Vaccination/Date Given: No <MONI BAUMAN - Last Filed: 06/24/24 06:44> <MELISSA MCKEON - Last Filed: 06/24/24 09:22> - History of Present Illness Time Seen by Provider: 06/24/24 06:10 Physician History: This is an 83-year-old white male patient of Dr. Saini who arrives by private vehicle accompanied by his spouse because of abrupt onset of nosebleed out of the right nostril. It woke him up. Patient is on warfarin and baby aspirin. He has a history of stroke in the past as well as CABG. He has history of prostate issues, hyperlipidemia, chronic anemia, dementia and diabetes. He denies chest pain and he denies shortness of breath. Patient states that his bleeding stopped before he even arrived to our facility. (MONI BAUMAN) Allergies/Adverse Reactions: No Known Drug Allergies Allergy (Verified 06/24/24 05:44) Home Medications: Aspirin 81 gm Chew [Baby Aspirin 81 mg Chew] 81 mg PO DAILY 04/13/22 [History] Donepezil HCl [Aricept] 5 mg PO DAILY 04/13/22 [History] Glimepiride 1 mg PO BIDWM 04/13/22 [History] Simvastatin 10 mg [Zocor 10MG] 10 mg PO HS 04/13/22 [History] Mecobalamin [B-12] 1,000 mcg SL DAILY 06/03/22 [History] Multivitamin 1 each PO DAILY 06/03/22 [History] Bumetanide 2 mg PO DAILY 11/12/22 [History] Potassium Chloride 10 meq PO QAM 01/21/23 [History] Tamsulosin HCl 0.4 mg [Flomax 0.4 MG] 0.8 mg PO DAILY 01/21/23 [History] Ubidecarenone [Co Q-10] 300 mg PO DAILY 01/21/23 [History] Ferrous Sulfate 325 mg [Feosol 325 mg] 65 mg PO DAILY 03/09/24 [History] Non-Formulary Drug [Non-Formulary Item] 444 mg PO DAILY 06/24/24 [History] Travel Risk - International Travel Have you traveled outside of the country in past 3 weeks: No - Emerging Infectious Disease Are you exhibiting symptoms associated with any current EIDs: No <MONI BAUMAN - Last Filed: 06/24/24 06:44> - Review of Systems Constitutional: No Symptoms Eyes: No Symptoms Ears, Nose, & Throat: Epistaxis (Primarily right nostril) Respiratory: No Symptoms Cardiac: No Symptoms Abdominal/Gastrointestinal: No Symptoms Genitourinary Symptoms: No Symptoms Musculoskeletal: No Symptoms Skin: No Symptoms Neurological: No Symptoms Psychological: No Symptoms Endocrine: No Symptoms Hematologic/Lymphatic: No Symptoms Immunological/Allergic: No Symptoms All Other Systems: Reviewed and Negative <MONI BAUMAN - Last Filed: 06/24/24 06:44> - Past Medical History Pertinent Past Medical History: Yes Neurological History: Stroke ENT History: Cataracts Cardiac History: Coronary Artery Disease, High Cholesterol, Hypertension Respiratory History: No Pertinent History Endocrine Medical History: Diabetes Type II Musculoskeletal History: Arthritis GI Medical History: No Pertinent History History: No Pertinent History Psycho-Social History: No Pertinent History Male Reproductive Disorders: Prostate Problems Other Medical History: open heart bypass x 5 1994 - Past Surgical History Past Surgical History: Yes Neuro Surgical History: No Pertinent History Cardiac: CABG, Cardiac Catheterization Respiratory: No Pertinent History Gastrointestinal: No Pertinent History Genitourinary: No Pertinent History Musculoskeletal: No Pertinent History Male Surgical History: No Pertinent History - Social History Smoking Status: Former smoker Exposure to second hand smoke: No Drug Use: none Patient Lives Alone: No - Social Determinants of Health Will the patient participate in the screening: Yes Do you worry about a steady place to live?: No Do you have any problems with any of the following?: No known problems In the past 12 months,have you had to go without utilities?: No Transportation Issues: No Has anyone in your support network made you feel unsafe?: No Have you or anyone in your house had to go without enough: No <MONI BAUMAN - Last Filed: 06/24/24 06:44> - Physical Exam General Appearance: no apparent distress, alert, obese Eye Exam: bilateral eye: normal inspection, PERRL, EOMI Ear Exam: bilateral ear: auricle normal Nasal Exam: dried blood (Small amount right blood on the chin. 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, normal mood/affect, nml cerebellar function, nml station & gait, sensation nml Skin Exam: normal color, warm, dry SpO2 Interpretation: normal SpO2: 97 O2 Delivery: Room Air <MONI BAUMAN - Last Filed: 06/24/24 06:44> - Nursing Vital Signs Nursing Vital Signs: Initial Vital Signs Temperature 97.5 F 06/24/24 05:50 Pulse Rate 80 06/24/24 05:50 Respiratory Rate 18 06/24/24 05:50 Blood Pressure 204/88 06/24/24 05:50 O2 Sat by Pulse Oximetry 97 06/24/24 05:50 Pain Scale Pain Intensity 0 - Course Nursing assessment & vital signs reviewed: Yes <MONI BAUMAN - Last Filed: 06/24/24 06:44> Ordered Tests: Active Orders 24 hr Category Date Time Status CBC W DIFF Stat Lab 06/24/24 06:56 Completed POCT GLUCOSE Stat Lab 06/24/24 07:52 Completed PROTIME WITH INR Stat Lab 06/24/24 06:56 Completed UA W/RFX UR CULTURE Stat Lab 06/24/24 07:50 Completed Medication Summary Discontinued Medications Generic Name Dose Route Start Last Admin Trade Name Freq PRN Reason Stop Dose Admin Clonidine 0.1 mg 06/24/24 08:44 06/24/24 08:46 Clonidine Hcl 0.1 Mg Tablet PO 06/24/24 08:45 0.1 mg STAT ONE Administration Clonidine Confirm 06/24/24 08:45 Clonidine Hcl 0.1 Mg Tablet Administered 06/24/24 08:46 Dose 0.1 mg .ROUTE .STK-MED ONE Phenylephrine HCl 15 ml 06/24/24 06:49 06/24/24 06:56 Neosynephrine 0.5% Nasal [place]/Drops NS 06/24/24 06:50 15 ml STAT ONE Administration Phenylephrine HCl Confirm 06/24/24 06:55 Neosynephrine 0.5% Nasal [place]/Drops Administered 06/24/24 06:56 Dose 15 ml .ROUTE .STK-MED ONE Lab/Rad Data: Laboratory Result Diagrams 06/24/24 06:56 Laboratory Results 06/24/24 06/24/24 06/24/24 Range/Units 07:52 07:50 06:56 WBC (4.23-9.07) x10^3/uL RBC (4.63-6.08) x10^6/uL Hgb (13.7-17.5) g/dL Hct (40.1-51.0) % MCV (79.0-92.2) fL MCH (25.7-32.2) pg MCHC (32.3-36.5) g/dL RDW (11.6-14.4) % Plt Count (163-337) x10^3/uL MPV (9.4-12.4) fL Gran % (34.0-67.9) % Immature Gran % (Auto) (0.001-0.429) % Nucleat RBC Rel Count (0.00-0.2) % Eos # (Auto) (0.04-0.54) x10^3/uL Immature Gran # (Auto) (0.001-0.031) x10^3u/L Absolute Lymphs (auto) (1.32-3.57) x10^3/uL Absolute Monos (auto) (0.30-0.82) x10^3/uL Absolute Nucleated RBC (0.00-0.012) x10^3u/L Lymphocytes % (21.8-53.1) % Monocytes % (5.3-12.2) % Eosinophils % (0.8-7.0) % Basophils % (0.2-1.2) % Absolute Granulocytes (1.78-5.38) x10^3/uL Basophils # (0.01-0.08) x10^3/uL PT 28.4 H (9.4-12.5) SECONDS INR 2.79 (0.8-3.0) POC Glucometer 162 H (74 to 106) mg/dL Urine Color Yellow (Yellow) Urine Appearance Clear (Clear) Urine pH 6.0 (4.6-8.0) Ur Specific [place] <=1.005 (1.005-1.030) Urine Protein Negative (Negative) Urine Glucose (UA) Negative (Negative) mg/dL Urine Ketones Negative (Negative) Urine Blood Trace (Negative) Urine Nitrite Negative (Negative) Urine Bilirubin Negative (Negative) Urine Urobilinogen 0.2 (0.2) mg/dL Ur Leukocyte Esterase Negative (Negative) U Hyaline Cast (Auto) NONE SEEN (0-2) /LPF Urine Microscopic RBC 0-2 (0-5) /HPF Urine Microscopic WBC 0-2 (0-5) /HPF Ur Epithelial Cells None Seen (None Seen) /HPF Urine Bacteria None Seen (None Seen) /HPF Urine Culture Reflexed NO (NO) 06/24/24 Range/Units 06:56 WBC 7.1 (4.23-9.07) x10^3/uL RBC 4.21 L (4.63-6.08) x10^6/uL Hgb 12.7 L (13.7-17.5) g/dL Hct 39.5 L (40.1-51.0) % MCV 93.8 H (79.0-92.2) fL MCH 30.2 (25.7-32.2) pg MCHC 32.2 L (32.3-36.5) g/dL RDW 14.5 H (11.6-14.4) % Plt Count 196 (163-337) x10^3/uL MPV 9.4 (9.4-12.4) fL Gran % 76.4 H (34.0-67.9) % Immature Gran % (Auto) 0.7 H (0.001-0.429) % Nucleat RBC Rel Count 0.0 (0.00-0.2) % Eos # (Auto) 0.12 (0.04-0.54) x10^3/uL Immature Gran # (Auto) 0.05 H (0.001-0.031) x10^3u/L Absolute Lymphs (auto) 0.63 L (1.32-3.57) x10^3/uL Absolute Monos (auto) 0.83 H (0.30-0.82) x10^3/uL Absolute Nucleated RBC 0.00 (0.00-0.012) x10^3u/L Lymphocytes % 8.8 L (21.8-53.1) % Monocytes % 11.7 (5.3-12.2) % Eosinophils % 1.7 (0.8-7.0) % Basophils % 0.7 (0.2-1.2) % Absolute Granulocytes 5.44 H (1.78-5.38) x10^3/uL Basophils # 0.05 (0.01-0.08) x10^3/uL PT (9.4-12.5) SECONDS INR (0.8-3.0) POC Glucometer (74 to 106) mg/dL Urine Color (Yellow) Urine Appearance (Clear) Urine pH (4.6-8.0) Ur Specific [place] (1.005-1.030) Urine Protein (Negative) Urine Glucose (UA) (Negative) mg/dL Urine Ketones (Negative) Urine Blood (Negative) Urine Nitrite (Negative) Urine Bilirubin (Negative) Urine Urobilinogen (0.2) mg/dL Ur Leukocyte Esterase (Negative) U Hyaline Cast (Auto) (0-2) /LPF Urine Microscopic RBC (0-5) /HPF Urine Microscopic WBC (0-5) /HPF Ur Epithelial Cells (None Seen) /HPF Urine Bacteria (None Seen) /HPF Urine Culture Reflexed (NO) - Progress Progress: improved <MONI BAUMAN - Last Filed: 06/24/24 06:44> - Progress Counseled pt/family regarding: lab results, diagnosis, need for follow-up <MELISSA MCKEON - Last Filed: 06/24/24 09:22> - Progress Progress Note: 06/24/24 06:47 My medical decision making and the assignment of low complexity to this patient's medical issue today is based on review of the patient's past medical history, review of the patient's medication list, reviewed patient drug allergy list, history present illness and physical findings on examination. The workup in this patient includes CBC and PT/INR. We will also provide the patient with the nasal clip and a bottle of Lucien-Synephrine for take home. Differential diagnosis includes but is not limited to spontaneous epistaxis, elevated PT/INR I am transferring care of this patient to Dr. Mckeon at shift change. He will follow-up on the workup results and make final disposition (MONI BAUMAN) 06/24/24 09:27 Patient is checked out to me at shift change from Dr. Bauman with pending lab work. Patient has a hemoglobin of 12, INR of 2.7. Patient did not have any bleeding during my evaluation. His blood pressure was high, I have given him clonidine and currently blood pressure is 170s. Patient takes only Bumex and I would give him clonidine to take as needed and recommended outpatient follow-up. Patient was complaining of increased urinary frequency, I have checked his blood sugar it is in 160s and has no UTI. Discussed signs symptoms of worsening of bleeding and management prior to arrival in the ER which patient seems understanding. Stable for discharge. (MELISSA MCKEON) Medical Desision Making - Independent Historian Additional History obtained from: Spouse <MONI BAUMAN - Last Filed: 06/24/24 06:44> - Diagnostic Testing Diagnostic test were ordered, analyzed, and reviewed by me: Yes - Risk of complications The pt has a mod risk of morbidity or mortality based on: Need for prescription drug management <MELISSA MCKEON - Last Filed: 06/24/24 09:22> - Departure Departure Disposition: Home Critical Care Time: No <MONI BAUMAN - Last Filed: 06/24/24 06:44> <MELISSA MCKEON - Last Filed: 06/24/24 09:22> - Departure Clinical Impression: Epistaxis, Uncontrolled hypertension Condition: Stable Referrals: DELFIN SAINI MD [Primary Care Provider] - Follow up with PCP 1 day Instructions: Nosebleeds (DC), High blood pressure - ED discharge instructions Additional Instructions: Take low-salt diet, monitor your blood pressure regularly, keep a log and follow-up with PCP for reevaluation. Take clonidine follow-up with primary care for reevaluation. Apply firm pressure for 5 minutes if has bleeding again. Only as needed if blood pressure greater than 160 systolic. Return to ER for bleeding from nose, having chest pain palpitations, shortness of breath, feeling dizzy lightheaded etc. Prescriptions: Clonidine HCl 0.1 mg [Clonidine 0.1 mg Tablet] 0.1 mg PO Q12H PRN PRN 10 Days #10 tablet PRN Reason: Hypertension
[2024-06-24] MEDS ORDERED: NEOSYNEPHRINE 0.5% NASAL SPRAY/DROPS ONE (06:55)
[2024-06-24 06:56] LABS: Absolute Neutrophil Ct (ANC) 5.44 x10^3/uL (1.78-5.38); BASOPHIL % 0.7 % (0.2-1.2); Basophil (Absolute #) 0.05 x10^3/uL (0.01-0.08); Eosinophil % 1.7 % (0.8-7.0); Eosinophil (Absolute #) 0.12 x10^3/uL (0.04-0.54); Hematocrit 39.5 % (40.1-51.0); Hemoglobin 12.7 g/dL (13.7-17.5); IMMATURE GRAN # 0.05 x10^3u/L (0.001-0.031); IMMATURE GRAN % 0.7 % (0.001-0.429); Lymphocyte (Absolute #) 0.63 x10^3/uL (1.32-3.57); Lymphocytes % 8.8 % (21.8-53.1); Mean Cell Volume 93.8 fL (79.0-92.2); Mean Corpuscular Hemoglobin 30.2 pg (25.7-32.2); Mean Corpuscular Hgb Concent. 32.2 g/dL (32.3-36.5); Mean Platelet Volume 9.4 fL (9.4-12.4); Monocyte (Absolute #) 0.83 x10^3/uL (0.30-0.82); Monocytes % 11.7 % (5.3-12.2); Neutrophil % 76.4 % (34.0-67.9); Platelet Count 196 x10^3/uL (163-337); Red Blood Count 4.21 x10^6/uL (4.63-6.08); Red Cell Distribution Width 14.5 % (11.6-14.4); White Blood Count 7.1 x10^3/uL (4.23-9.07)
[2024-06-24] MEDS: NEOSYNEPHRINE 0.5% NASAL SPRAY/DROPS NS ONE (06:56)
[2024-06-24 07:10] LABS: INR 2.79 (0.8-3.0); PROTIME 28.4 SECONDS (9.4-12.5)
[2024-06-24 08:12] LABS: Appearance Clear (Clear); Bacteria None Seen /HPF (None Seen); Bilirubin Negative (Negative); Blood Trace (Negative); Epithelial Cells None Seen /HPF (None Seen); Glucose, Urine Negative (Negative); Hyaline Casts NONE SEEN /LPF (0-2); Ketones Negative (Negative); Leukocyte Esterase Negative (Negative); Nitrite Negative (Negative); Protein,Urine Dip Negative (Negative); RBC 0-2 /HPF (0-5); Specific Gravity <=1.005 (1.005-1.030); Urobilinogen 0.2 mg/dL (0.2); WBC 0-2 /HPF (0-5)
[2024-06-24] MEDS ORDERED: CLONIDINE 0.1 MG TABLET ONE (08:45)
[2024-06-24] MEDS: CLONIDINE 0.1 MG TABLET PO ONE (08:46)
[2024-06-24 09:16] VITALS: BP 186/88; PULSE 79; O2SAT 97
== END 2024-06-24 09:30 | disposition home or self-care (01) ==
LOC: ED 05:40
DX: R04.0 Epistaxis (principal); I10 Essential (primary) hypertension; E78.5 Hyperlipidemia, unspecified; E11.9 Type 2 diabetes mellitus without complications; Z79.84 Long term (current) use of oral hypoglycemic drugs; Z79.899 Other long term (current) drug therapy
CPT/HCPCS: 36415; 81001; 82947; 85025; 85610; 99283; A9270-GY

== ENCOUNTER 2025-03-17 05:12 | Emergency (ER) | payer MEDICARE ==
[2025-03-17 05:28] VITALS: RESP 17
[2025-03-17 06:44] VITALS: O2SAT 98
--- NOTE | 2025-03-17 07:07 | ERPHSYRPT ---
- History of Present Illness Patient Subjective Stated Complaint: c/o constipation Triage Nursing Assessment: patient brought to ED by with c/o constipation. patient is passing some small stools, denies abdominal pain, states that he has been trying miralax, stool softeners, and enemas. patient brought in by [facility], skin w/n/d, afebrile, hypertensive, patient doesn't appear to be in any distress at this time. Physician History: Constipated, patient has been utilizing MiraLAX, Senokot, glycerin suppositories he has been having small bowel movements Timing/Duration: day(s) (4) Severity: moderate Associated Symptoms: No nausea, No vomiting, No abdominal pain Allergies/Adverse Reactions: No Known Drug Allergies Allergy (Verified 03/17/25 05:18) Home Medications: Aspirin 81 gm Chew [Baby Aspirin 81 mg Chew] 81 mg PO DAILY 04/13/22 [History] Donepezil HCl [Aricept] 5 mg PO DAILY 04/13/22 [History] Glimepiride 1 mg PO BIDWM 04/13/22 [History] Simvastatin 10 mg [Zocor 10MG] 10 mg PO HS 04/13/22 [History] Mecobalamin [B-12] 1,000 mcg SL DAILY 06/03/22 [History] Multivitamin 1 each PO DAILY 06/03/22 [History] Bumetanide 2 mg PO DAILY 11/12/22 [History] Potassium Chloride 10 meq PO QAM 01/21/23 [History] Tamsulosin HCl 0.4 mg [Flomax 0.4 MG] 0.4 mg PO DAILY 01/21/23 [History] Ubidecarenone [Co Q-10] 300 mg PO DAILY 01/21/23 [History] Ferrous Sulfate 325 mg [Feosol 325 mg] 65 mg PO DAILY 03/09/24 [History] Non-Formulary Drug [Non-Formulary Item] 444 mg PO DAILY 06/24/24 [History] Clonidine HCl 0.1 mg [Clonidine 0.1 mg Tablet] 0.1 mg PO BID 03/17/25 [History] Phenylephrine Nasal [Neosynephrine 0.5% Nasal [place]/Drops] 1 spray IH DAILY PRN PRN 03/17/25 [History] terbinafine HCL [Terbinafine HCl] 250 mg PO DAILY 03/17/25 [History] Hx Tetanus, Diphtheria Vaccination/Date Given: No Hx Influenza Vaccination/Date Given: No Hx Pneumococcal Vaccination/Date Given: No Travel Risk - International Travel Have you traveled outside of the country in past 3 weeks: No - Emerging Infectious Disease Are you exhibiting symptoms associated with any current EIDs: No - Past Medical History Pertinent Past Medical History: Yes Neurological History: Stroke ENT History: Cataracts Cardiac History: Coronary Artery Disease, High Cholesterol, Hypertension Respiratory History: No Pertinent History Endocrine Medical History: Diabetes Type II Musculoskeletal History: Arthritis GI Medical History: No Pertinent History History: No Pertinent History Psycho-Social History: No Pertinent History Male Reproductive Disorders: Prostate Problems Other Medical History: open heart bypass x 5 1994 - Past Surgical History Past Surgical History: Yes Neuro Surgical History: No Pertinent History Cardiac: CABG, Cardiac Catheterization Respiratory: No Pertinent History Gastrointestinal: No Pertinent History Genitourinary: No Pertinent History Musculoskeletal: No Pertinent History Male Surgical History: No Pertinent History - Social History Smoking Status: Never smoker Exposure to second hand smoke: No Drug Use: none - Social Determinants of Health Will the patient participate in the screening: Declined to provide - Nursing Vital Signs Nursing Vital Signs: Initial Vital Signs Temperature 96.7 F 03/17/25 05:19 Pulse Rate 74 03/17/25 05:19 Respiratory Rate 17 03/17/25 05:19 O2 Sat by Pulse Oximetry 97 03/17/25 05:19 Pain Scale Pain Intensity 0 - Physical Exam General Appearance: no apparent distress, alert, obese Eye Exam: PERRL/EOMI, eyes nml inspection Ears, Nose, Throat Exam: normal ENT inspection, TMs normal, pharynx normal, moist mucous membranes Neck Exam: normal inspection, non-tender, supple, full range of motion Respiratory Exam: normal breath sounds, lungs clear, No respiratory distress Cardiovascular Exam: regular rate/rhythm, normal heart sounds, normal peripheral pulses Gastrointestinal/Abdomen Exam: soft, normal bowel sounds, No tenderness, No mass Rectal Exam: other (No fecal impaction) Back Exam: normal inspection, normal range of motion, No CVA tenderness, No vertebral tenderness Extremity Exam: normal inspection, normal range of motion, pelvis stable Neurologic Exam: alert, oriented x 3, cooperative, normal mood/affect, nml cerebellar function, nml station & gait, sensation nml, No motor deficits Skin Exam: normal color, warm, dry, No rash Lymphatic Exam: No adenopathy SpO2 Interpretation: normal SpO2: 98 - Radiology Exams Abdomen X-ray Interpretation: Interpreted by me, Other (Stool burden in the descending colon, no obstruction) Ordered Tests: Active Orders 24 hr Category Date Time Status KUB Stat Exams 03/17/25 05:38 Taken - Progress Progress Note: 03/17/25 07:06 Discussed x-ray, Outpatient follow-up and treatment - Departure Departure Disposition: Home Clinical Impression: Constipation Qualifiers: Constipation type: unspecified constipation type Qualified Code(s): K59.00 - Constipation, unspecified Condition: Stable Critical Care Time: No [facility]errals: [facility] [Primary Care Provider, UNKNOWN] - Follow up/PCP as directed Instructions: Constipation, Adult (DC) Additional Instructions: 5 packets of Miralax with 32 oz of water
[2025-03-17 07:25] VITALS: BP 172/94; PULSE 69; TEMP 97.1
--- NOTE | 2025-03-17 07:52 | XRAY ---
Indication: Constipation. Comparison: None KUB nonacute nonobstructed with mild fecal debris right hemicolon. Solid organs unremarkable. Osseous structures intact with osteopenia and moderate degenerative changes.
== END 2025-03-17 07:25 | disposition home or self-care (01) ==
LOC: ED 05:12
DX: K59.00 Constipation, unspecified (principal); I10 Essential (primary) hypertension; E11.9 Type 2 diabetes mellitus without complications; Z79.84 Long term (current) use of oral hypoglycemic drugs; Z79.899 Other long term (current) drug therapy